=== PATIENT | female | born 1985 | race Caucasian/White ===

== ENCOUNTER 2021-11-01 13:51 | Inpatient (IN) ==
[2021-11-01 15:24] LABS: ABS Basophils 0.1 10^3/ul (0-0.2); ABS Lymphocytes 1.6 10^3/ul (1.0-4.8); ABS Monocytes 0.5 10^3/ul (0-0.8); ABS Neutrophils 13.8 10^3/ul (1.5-7.7); Eosinophil % 0.2 %; Hematocrit 44 % (35-47); Hemoglobin 14.9 g/dL (12.0-16.0); Lymphocyte % 9.7 %; Mean Corpuscular HGB Conc 34 g/dL (31-36); Mean Corpuscular Hemoglobin 30 pg (27-31); Mean Corpuscular Volume 89 fL (80-97); Mean Platelet Volume 7.1 fL (7.4-10.4); Platelet Count 392 10^3/uL (150-450); Red Blood Count 4.93 10^6 /uL (3.70-4.87); Red Cell Distribution Width 13 % (10-15)
[2021-11-01 15:27] LABS: Urine Appearance Cloudy; Urine Bilirubin Negative (Negative); Urine Blood Negative (Negative); Urine Color Amber; Urine Glucose Negative (Negative); Urine Ketones Trace (Negative); Urine Nitrite Negative (Negative); Urine Protein 1+(30 mg/dL) (Negative); Urine Urobilinogen Negative (Negative)
[2021-11-01 15:38] LABS: Urine Bacteria 1+ (Absent); Urine Red Blood Cell 2+(6-10/hpf) (Absent); Urine Squamous Epithelial Cell Present (Absent); Urine White Blood Cell Trace(0-5/hpf) (Absent)
[2021-11-01 15:46] LABS: ALT 18 U/L (7-52); AST 17 U/L (13-39); Acetaminophen < 15 mcg/mL; Albumin 4.3 g/dL (3.2-5.2); Albumin/Globulin Ratio 1.7 (1-3); Alcohol, S < 13 mg/dL (<13); Alkaline Phosphatase 60 U/L (35-149); Anion Gap 7 mmol/L (2-11); Blood Urea Nitrogen 13 mg/dL (6-24); CO2 Carbon Dioxide 23 mmol/L (22-32); Calcium 9.2 mg/dL (8.6-10.3); Chloride 106 mmol/L (101-111); Globulin 2.5 g/dL (2-4); Glucose 140 mg/dL (70-100); Salicylate < 2.50 mg/dL (<30); Sodium 136 mmol/L (135-145); Total Protein 6.8 g/dL (6.4-8.9); eGFR CKD-EPI 118.9 (>60)
[2021-11-01 15:58] LABS: TSH Ultra Thyroid Stim Horm 0.98 mcIU/mL (0.34-5.60)
[2021-11-01 16:21] LABS: Urine Benzodiazepine Screen None Detected (None Detect); Urine Cannabinoids Screen Presumptive Positive (None Detect); Urine Opiates Screen None Detected (None Detect)
[2021-11-01] MEDS ORDERED: Al Hydrox/Mg Hydrox/Simet LIQ 30 ML UDC PO PRN (23:43)
[2021-11-02 07:53] LABS: Cholesterol 228 mg/dL; HDL Cholesterol 60.8 mg/dL; LDL Cholesterol 151 mg/dL; Triglycerides 79 mg/dL
[2021-11-02] MEDS: Nicotine PATCH 14 MG/24 HR PATCH TRANSDERM SCH (09:26)
[2021-11-02] MEDS: Vitamin THERAPEUTIC TAB PO SCH (09:26)
[2021-11-02 13:23] LABS: HCG Pregnancy < 0.60 mIU/mL
[2021-11-03] MEDS: Nicotine PATCH 14 MG/24 HR PATCH TRANSDERM SCH (08:18)
[2021-11-03] MEDS: Vitamin THERAPEUTIC TAB PO SCH (08:18)
[2021-11-03] MEDS: OLANzapine 5 mg TAB*ODT PO PRN (20:40)
[2021-11-04] MEDS: Nicotine PATCH 14 MG/24 HR PATCH TRANSDERM SCH (08:01)
[2021-11-04] MEDS: Vitamin THERAPEUTIC TAB PO SCH (08:01)
[2021-11-04 13:34] LABS: Urine Appearance Cloudy; Urine Bilirubin Negative (Negative); Urine Blood Negative (Negative); Urine Color Yellow; Urine Glucose Negative (Negative); Urine Ketones Negative (Negative); Urine Nitrite Negative (Negative); Urine Protein Negative (Negative); Urine Specific Gravity 1.016 (1.002-1.030); Urine Urobilinogen Negative (Negative)
[2021-11-04 13:54] LABS: Urine Bacteria Absent (Absent); Urine Red Blood Cell Trace(0-2/hpf) (Absent); Urine Squamous Epithelial Cell Present (Absent); Urine White Blood Cell Trace(0-5/hpf) (Absent)
[2021-11-04] MEDS: OLANzapine 5 mg TAB*ODT PO PRN (19:23)
[2021-11-05] MEDS: Nicotine PATCH 14 MG/24 HR PATCH TRANSDERM SCH (08:01)
[2021-11-05] MEDS: Vitamin THERAPEUTIC TAB PO SCH (08:02)
[2021-11-05] MEDS: OLANzapine 5 mg TAB*ODT PO PRN (23:58)
[2021-11-06] MEDS: Nicotine PATCH 14 MG/24 HR PATCH TRANSDERM SCH (08:14)
[2021-11-06] MEDS: Vitamin THERAPEUTIC TAB PO SCH (08:36)
[2021-11-06] MEDS: OLANzapine 5 mg TAB*ODT PO PRN (22:35)
[2021-11-07] MEDS: Nicotine PATCH 14 MG/24 HR PATCH TRANSDERM SCH (08:18)
[2021-11-07] MEDS: Vitamin THERAPEUTIC TAB PO SCH (08:20)
[2021-11-07] MEDS ORDERED: Nicotine GUM 2MG FRUIT FLAVOR PO ONE (17:40)
[2021-11-07] MEDS ORDERED: Nicotine GUM 2MG FRUIT FLAVOR PO PRN (20:00)
[2021-11-08 07:44] VITALS: BP 124/64
[2021-11-08] MEDS: Nicotine PATCH 14 MG/24 HR PATCH TRANSDERM SCH (08:17)
[2021-11-08] MEDS: Vitamin THERAPEUTIC TAB PO SCH (08:17)
== END 2021-11-08 14:40 | disposition home or self-care (01) | DRG 885 ==
LOC: ED 13:51 → EDHOLD 19:45 → BSU 11-02 00:32
PROVIDERS: ADMIT Psychiatry & Neurology Psychiatry; ATTEND Psychiatry & Neurology Psychiatry